=== PATIENT | female | born 1980 | race Caucasian/White ===

== ENCOUNTER 2017-05-29 07:32 | Day surgery (SDC) | payer BC ==
[~2017-05-29 07:32] MED LIST: PROPOFOL INJ 200 MG/20 ML VIAL IV ONE
[2017-05-29] MEDS ORDERED: PROPOFOL INJ 200 MG/20 ML VIAL IV ONE (09:13)
[2017-05-29 09:52] VITALS: BP 140/80
--- NOTE | 2017-05-29 13:24 | Operative Report ---
Operative Report DATE OF SURGERY: 05/29/17 Operative Report: The risks, benefits and alternatives of the procedure including risks of bleeding, perforation requiring surgery are explained to the patient in detail and informed consent was obtained. Patient is taken back to the endoscopy suite and placed in the left, lateral decubital position. Timeout was called. Propofol medications administered. A rectal examination is done which did not reveal any masses, tears or fissures. An Olympus videoscope was inserted into the patient's rectum. The scope was then carefully advanced all the way to the cecum. The cecum was identified by the usual anatomical landmarks including the ileocecal valve as well as the appendiceal office. Photodocumentation is obtained. The scope was then sequentially pulled back via the various segments of the colon including the ascending colon, hepatic flexure, transverse colon, splenic flexure, descending colon went to the rectosigmoid portions of the colon. Digital flexion maneuvers performed. PREOPERATIVE DIAGNOSIS: Blood in stool POSTOPERATIVE DIAGNOSIS: Mild terminal ileitis status post biopsy rule out Crohn 's disease. Random biopsies taken in the right side of the colon status post lymphocytic, collagenous, microscopic colitis. Pedunculated sigmoid polyp removed via snare polypectomy. Internal hemorrhoids OPERATION: Colonoscopy with snare polypectomy. Colonoscopy with biopsy SURGEON: ABIODUN MORAN ANESTHESIA: LMAC TISSUE REMOVED OR ALTERED: As noted above. COMPLICATIONS: None. ESTIMATED BLOOD LOSS: None. INTRAOPERATIVE FINDINGS: As described above. PROCEDURE: Patient tolerated procedure well. No immediate postprocedure complications are noted. Patient discharged in good condition. Discharge date 05/29/2017. Discharge diet: Regular. Discharge activity: Regular. 2-3 week follow-up to discuss findings. Patient is instructed to call the office or proceed to the emergency room should there be any further problems or questions. Await pathology. 3-5 year surveillance colonoscopy.
== END 2017-05-29 09:50 | disposition home or self-care (01) ==
LOC: END 07:32
PROVIDERS: ATTEND Internal Medicine Gastroenterology
PROC: 0DBF8ZX Excision of Right Large Intestine, Via Natural or Artificial Opening Endoscopic, Diagnostic (ICD-10-PCS; 2017-05-29)
PROC: 0DBB8ZX Excision of Ileum, Via Natural or Artificial Opening Endoscopic, Diagnostic (ICD-10-PCS; principal; 2017-05-29 09:00)
PROC: 0DBN8ZX Excision of Sigmoid Colon, Via Natural or Artificial Opening Endoscopic, Diagnostic (ICD-10-PCS; 2017-05-29 09:00)
DX: D12.5 Benign neoplasm of sigmoid colon (principal); K52.9 Noninfective gastroenteritis and colitis, unspecified; K64.8 Other hemorrhoids; K92.1 Melena; Z87.891 Personal history of nicotine dependence; Z79.899 Other long term (current) drug therapy
CPT/HCPCS: 45380; 45385; 88305 ×2; J2704; 810

== ENCOUNTER 2018-03-18 09:25 | Emergency (ER) | payer BC ==
[2018-03-18 10:35] LABS: ANION GAP 15 (5-19); BLOOD UREA NITROGEN 12 mg/dL (7-20); CALCIUM 9.5 mg/dL (8.4-10.2); CARBON DIOXIDE 23 mmol/L (22-30); CHLORIDE 105 mmol/L (98-107); GLUCOSE 92 mg/dL (75-110); POTASSIUM 3.9 mmol/L (3.6-5.0); SODIUM 142.5 mmol/L (137-145)
--- NOTE | 2018-03-18 11:39 | ER Document Report ---
ED General - General Chief Complaint: Leg Pain Stated Complaint: LEG SWELLING Time Seen by Provider: 03/18/18 09:36 TRAVEL OUTSIDE OF THE [place] IN LAST 30 DAYS: No - HPI Patient complains to provider of: Leg pain swelling Notes: Patient coming in for right leg pain swelling ongoing for last few days. Patient works with [employer] states she did come in to have her leg evaluated for possible DVT. Patient states she thinks he has underlying muscle cramp. States she has been drinking a lot of water. Patient denies any history of blood clots in the past recent travel patient denies any control smoking. Patient resting comfortably upon my evaluation. - Related Data Allergies/Adverse Reactions: No Known Allergies Allergy (Verified 03/18/18 09:26) Past Medical History - Social History Smoking Status: Current Some Day Smoker Chew tobacco use (# tins/day): No Frequency of alcohol use: Occasional Drug Abuse: None Family History: Reviewed & Not Pertinent, DM Patient has suicidal ideation: No Patient has homicidal ideation: No - Past Medical History Cardiac Medical History: Reports: Hx Coronary Artery Disease - INCREASED HEART RATE Denies: Hx Heart Attack, Hx Hypertension Pulmonary Medical History: Denies: Hx Asthma, Hx Bronchitis, Hx COPD, Hx Pneumonia Neurological Medical History: Denies: Hx Cerebrovascular Accident, Hx Seizures Renal/ Medical History: Reports: Hx Ovarian Cysts. Denies: Hx Peritoneal Dialysis GI Medical History: Denies: Hx Hepatitis, Hx Hiatal Hernia, Hx Ulcer Musculoskeletal Medical History: Denies Hx Arthritis Infectious Medical History: Denies: Hx Hepatitis Past Surgical History: Reports: Hx Section, Hx Hysterectomy, Hx Tonsillectomy. Denies: Hx Mastectomy, Hx Open Heart Surgery, Hx Pacemaker - Immunizations Hx Diphtheria, Pertussis, Tetanus Vaccination: No Review of Systems - Review of Systems Constitutional: No symptoms reported EENT: No symptoms reported Cardiovascular: No symptoms reported Respiratory: No symptoms reported Gastrointestinal: No symptoms reported Genitourinary: No symptoms reported Female Genitourinary: No symptoms reported Musculoskeletal: Leg swelling, Other Skin: No symptoms reported Hematologic/Lymphatic: No symptoms reported Neurological/Psychological: No symptoms reported -: Yes All other systems reviewed and negative Physical Exam - Vital signs Vitals: Temp Pulse Resp BP Pulse Ox 97.5 F 80 16 141/84 H 100 03/18/18 09:29 03/18/18 09:29 03/18/18 09:29 03/18/18 09:29 03/18/18 09:29 Interpretation: Normal - General General appearance: Appears well, Alert - HEENT Head: Normocephalic, Atraumatic Eyes: Normal Pupils: PERRL - Respiratory Respiratory status: No respiratory distress Chest status: Nontender Breath sounds: Normal Chest palpation: Normal - Cardiovascular Rhythm: Regular Heart sounds: Normal auscultation Murmur: No - Abdominal Inspection: Normal Distension: No distension Bowel sounds: Normal Tenderness: Nontender Organomegaly: No organomegaly - Back Back: Normal, Nontender - Extremities General upper extremity: Normal inspection, Nontender, Normal color, Normal ROM , Normal temperature General lower extremity: Normal inspection, Tender - Mild tenderness to palpation of the calf, Normal color, Normal ROM, Normal temperature, Normal weight bearing. No: Ulises's sign - Neurological Neuro grossly intact: Yes Cognition: Normal Orientation: AAOx4 [place] Coma Scale Eye Opening: Spontaneous [place] Coma Scale Verbal: Oriented [place] Coma Scale Motor: Obeys Commands [place] Coma Scale Total: 15 Speech: Normal Motor strength normal: LUE, RUE, LLE, RLE Sensory: Normal - Psychological Associated symptoms: Normal affect, Normal mood - Skin Skin Temperature: Warm Skin Moisture: Dry Skin Color: Normal Course - Re-evaluation Re-evalutation: 03/18/18 20:01 Ultrasounds negative for any signs of DVT. Patient's laboratory studies not show any electrolyte abnormalities. Patient was encouraged to make sure she drinks plenty of fluids Tylenol Motrin for pain control patient will be discharged home - Vital Signs Vital signs: Temp Pulse Resp BP Pulse Ox 99.0 F 78 18 128/81 H 98 03/18/18 11:45 03/18/18 11:45 03/18/18 11:45 03/18/18 11:45 03/18/18 11:45 - Laboratory Result Diagrams: 03/18/18 09:51 Discharge - Discharge Clinical Impression: Swelling Leg pain Qualifiers: Laterality: unspecified laterality Qualified Code(s): M79.606 - Pain in leg, unspecified Condition: Good Disposition: HOME, SELF-CARE Instructions: Dependent Edema ([facility]), Leg Cramps ([facility]), Leg Pain Nonspecific ( [facility]) Additional Instructions: Your laboratory evaluation today shows no signs of left leg abnormality. Would recommend continue to drink water and fluids containing a little less. Your Doppler does not show any signs of blood clots. Please make sure you are elevating her leg whenever at rest above the level of the heart. Follow-up with your primary care physician return to ER symptoms worsen. Prescriptions: Ibuprofen [Motrin 600 mg Tablet] 600 mg PO Q8HP PRN #21 tablet PRN Reason: Forms: Return to Work
[2018-03-18 11:50] VITALS: BP 128/81
--- NOTE | 2018-03-19 09:45 | XCELERA REPORT ---
[address] [place] [facility] [address] Lower Extremity Venous Evaluation Procedure: Color flow and duplex imaging of the veins of the right lower extremity as well as the left Common Femoral vein. Right Sided Venous Evaluation Normal vessel filling wall to wall, compression and augmentation as well as Colour flow down to the infrageniculate veins. Left Sided Venous Evaluation The left common femoral vein is fully compressible. Spontaneous and phasic flow is present in the left common femoral vein. Interpretation Summary No duplex evidence of DVT or obstruction in the right lower extremity nor in the left Common Femoral vein. Name: LEONA JIMÉNEZ Age: 37 yrs Gender: Female : 1980 Patient Status: Emergency Patient Location: ER Study Date: 03/18/2018 11:19 AM Reason For Study: rle pain Ordering Physician: PRISCILA REDDING Performed By: Shobha Hewitt : PRISCILA REDDING > Dakota Greene
== END 2018-03-18 11:50 | disposition home or self-care (01) ==
LOC: ER 09:25
DX: M79.89 Other specified soft tissue disorders (principal); M79.604 Pain in right leg; I25.10 Atherosclerotic heart disease of native coronary artery without angina pectoris
CPT/HCPCS: 36415; 80048; 83735; 93971; 99284